=== PATIENT | male | born 1955 | race African-American/Black ===

== ENCOUNTER 2023-02-04 15:48 | Emergency (ER) | payer OTHER ==
[~2023-02-04] VITALS: Ht 177.8 cm; Wt 110.0 kg
[2023-02-04 16:01] VITALS: O2SAT 96
[2023-02-04 16:53] LABS: HEMATOCRIT. 43.9 % (42.0-52.0); HEMOGLOBIN. 14.4 g/dL (14.0-18.0); MEAN CORPUSCULAR HEMOGLOBIN 28.8 pg (28.0-32.0); MEAN CORPUSCULAR HGB CONC 32.8 g/dL (31.0-37.0); MEAN CORPUSCULAR VOLUME 87.8 fL (80.0-94.0); PLATELET 168 x1000/uL (130-400); RED CELL DISTRIBUTION WIDTH 14.9 % (11.6-14.6); WHITE BLOOD COUNT 8.3 x1000/uL (4.5-11.0)
[2023-02-04 16:58] LABS: DIFFERENTIAL COMMENT 1
[2023-02-04 17:02] LABS: D-DIMER 0.21 mg/L FEU (<0.50); INR 1.1; PROTHROMBIN TIME 11.4 sec (9.6-11.0)
[2023-02-04 17:14] LABS: CHLORIDE 104 mEq/L (98-107); INDEX HEMOLYSI 1 (1-3); INDEX ICTERIC 1 (1-4); INDEX LIPEMIC 1 (1-3); POTASSIUM 3.6 mEq/L (3.5-5.1); SODIUM 136 mEq/L (136-145)
[2023-02-04 17:27] LABS: ALANINE AMINOTRANSFERASE 23 IU/L (13-61); ALBUMIN 3.7 g/dL (3.4-5.0); ASPARTATE AMINOTRANSFERASE 18 IU/L (15-37); BILIRUBIN TOTAL 0.3 mg/dL (0.1-1.0); CALCIUM 9.1 mg/dL (8.5-10.1); CARBON DIOXIDE 25 mEq/L (21-32); CREATININE 1.3 mg/dL (0.6-1.3); GLUCOSE 93 mg/dL (70-105); NT PRO B-TYPE NATRIURETIC PEP 147 pg/mL (5-125); PROTEIN TOTAL 7.3 g/dL (6.0-8.3); TROPONIN I HIGH SENSITIVITY 5 ng/L (<78); UREA NITROGEN BLOOD 20 mg/dL (7-21)
[2023-02-04 17:59] LABS: ANISOCYTOSIS 1+; PLATELET ESTIMATE NORMAL
[2023-02-04 19:29] VITALS: BP 148/78; PULSE 78; RESP 16; TEMP 102.9
== END 2023-02-04 19:30 | disposition home or self-care (01) ==
LOC: ER 15:48
DX: R06.02 Shortness of breath (principal)
CPT/HCPCS: 36415; 71045; 80053; 83880; 84484; 85025; 85379; 93005; 99285